=== PATIENT | male | born 1995 | race Caucasian/White ===

== ENCOUNTER 2018-01-19 16:13 | Emergency (ER) | payer OTHER ==
[~2018-01-19] VITALS: Ht 177.8 cm; Wt 80.4 kg
[2018-01-19 16:34] VITALS: BP 144/80; Ht 177.8 cm; Wt 80.4 kg
== END 2018-01-19 18:02 | disposition home or self-care (01) ==
LOC: ED 16:13
DX: S01.01XA Laceration without foreign body of scalp, initial encounter (principal); V09.9XXA Pedestrian injured in unspecified transport accident, initial encounter; Y93.89 Activity, other specified; Y92.89 Other specified places as the place of occurrence of the external cause; Y99.8 Other external cause status
CPT/HCPCS: J2001

== ENCOUNTER 2018-01-22 12:09 | Emergency (ER) | payer OTHER ==
[~2018-01-22] VITALS: Ht 177.8 cm; Wt 79.8 kg
[2018-01-22 12:33] VITALS: Ht 177.8 cm; Wt 79.8 kg
[2018-01-22 13:14] VITALS: BP 143/88
== END 2018-01-22 13:14 | disposition home or self-care (01) ==
LOC: ED 12:09
DX: S01.01XD Laceration without foreign body of scalp, subsequent encounter (principal); X58.XXXD Exposure to other specified factors, subsequent encounter

== ENCOUNTER 2018-01-27 18:44 | Emergency (ER) | payer OTHER ==
[~2018-01-27] VITALS: Ht 177.8 cm; Wt 79.8 kg
[2018-01-27 18:47] VITALS: BP 123/87; Ht 177.8 cm; Wt 79.8 kg
== END 2018-01-27 19:27 | disposition home or self-care (01) ==
LOC: ED 18:44
DX: S01.01XD Laceration without foreign body of scalp, subsequent encounter (principal); X58.XXXD Exposure to other specified factors, subsequent encounter